=== PATIENT | female | born 1965 | race Caucasian/White ===

== ENCOUNTER 2019-10-16 18:57 | Emergency (ER) | payer MEDICAID, SELFPAY ==
[2019-10-16 18:58] VITALS: BP 159/76; PULSE 99; RESP 16; TEMP 36.5; O2SAT 98; BMI 41.4
[2019-10-16 19:18] VITALS: BP 159/76; PULSE 99; RESP 16; TEMP 36.5; O2SAT 98; BMI 41.4
--- NOTE | 2019-10-16 19:33 | HMH.EDUTC ---
[facility] [place]: Throat irritation Disposition: Home, Self-Care Condition on Discharge: Good Instructions: Sore Throat Additional Instructions: *Monitor Temp, Over the counter Motrin or Tylenol as directed/as needed Tylenol every 4 hours and Motrin every 6 hours (as long as your family doctor has told you that you can take it) for fever or pain. and straight to ER if unable to lower temp less than 101.0 after medication given *Warm salt water gargles may help to soothe the throat A saltwater gargle of 1/4 to 1/2 teaspoon of table salt to 4 to 8 ounces of warm water can help soothe a sore throat. Gargle the solution and then spit it out. *Throat Lozenges and spray may help with irritation in back of throat *Warm fluids like tea with honey and lemon may help with throat irritation *Humidifier/Vaporizer *Flonase 2 sprays in each nostril daily but be aware that it may take 2-3 days before you notice improvement DO NOT STICK ANYTHING IN THE BACK OF YOUR THROAT, may cause severe injury Your throat swab was sent for culture. Those results are typically sent to your primary care. Be sure to follow up in 2-3 days with your family doctor/primary care physician if no improvement so they can review those result and treat if necessary. If you don?t have a primary care doctor, I recommend you get one but in the mean time, you will have to return to a walk in clinic Follow up IMMEDIATELY for new or worsening symptoms or no Noticeable improvement over the next 48-72 hours. 911 for difficulty breathing or swallowing Follow up with your family doctor if symptoms continue or for referral to ENT if needed Straight to ER if any life threatening symptoms Referrals: Provider,Referral, [Primary Care Provider] - As needed Time of Disposition: 19:47 Medical Decision Making - Juan Inquiry Pt receiving controlled substance: No Juan was queried for this patient: No Vital Signs: 10/16/19 18:58 10/16/19 19:18 Temperature 97.7 F 97.7 F Temperature Source Oral Oral Pulse Rate [Left Radial] 99 H 99 H Respiratory Rate 16 16 Blood Pressure [Right Arm] 159/76 H 159/76 H Blood Pressure Mean [Right Arm] 103 103 Blood Pressure Source [Right Arm] Automatic Cuff Automatic Cuff Blood Pressure Position [Right Arm] Sitting Sitting 02 Sat by Pulse Oximetry 98 98 Oxygen Delivery Method Room Air Room Air - Lab Data Lab results reviewed: Yes: I reviewed the patient's lab results. Medical Decision Narrative: Discussed with patient not to be sticking anything in the back of her throat to scratch throat due to risk of injury to tissue. Patient informed that this action could make irritation in throat worse Patient verbalized understanding risks Patient denies fever, denies chills, denies feeling ill just having itching like feeling in the back of her throat [facility] [place] - General Stated complaint: Feels like something in throat,Couth,SOB,Abd Pain Time Seen by Provider: 10/16/19 19:05 Mode of Arrival: Family Vehicle Source of Information: Patient Limitations: No Limitations Description of Symptoms (Recalled from Triage Doc. by RN): pt stated she feels a scratch in her throat like something is there for 3 weeks. pt is able to eat and drink without trouble. pt denies any pain in her throat. pt is being treated for a sinus infection and post nasal drip. pt also stated she takes a qtip and scratches the back of her throat everyday because it makes it feel better HEENT Symptoms (Recalled from RN notes): Yes Resp Symptoms (Recalled from RN notes): Yes Skin Symptoms (Recalled from RN notes): No MS Symptoms (Recalled from RN notes): No Functional Status (Recalled from RN notes): N/A - History of Present Illness Provider Complaint: Patient state that she has a history of anxiety attacks States that for about 3 weeks she has been feeling like she has an itchy like feeling in the back of her throat States that when she eats or drinks something it
[2019-10-16 19:35] LABS: UTC Strep Screen (Rapid) Negative (Negative)
[2019-10-16 19:56] VITALS: BP 159/76; PULSE 99; RESP 16; TEMP 36.5; O2SAT 98
== END 2019-10-16 19:58 | disposition home or self-care (01) ==
PROVIDERS: Emergency Provider Nurse Practitioner
DX: J39.2 Other diseases of pharynx (principal); F17.210 Nicotine dependence, cigarettes, uncomplicated
CPT/HCPCS: 87880; 99201

== ENCOUNTER 2019-11-24 15:55 | Emergency (ER) | payer MEDICAID, SELFPAY ==
[2019-11-24 16:17] VITALS: BP 150/81; PULSE 94; RESP 20; TEMP 36.7; O2SAT 95; BMI 43.2
--- NOTE | 2019-11-24 16:29 | HMH.EDUTC ---
[facility] [place] Clinical Impression: Bronchitis Sinusitis Qualifiers: Sinusitis location: unspecified location Chronicity: acute Recurrence: non-recurrent Qualified Code(s): J01.90 - Acute sinusitis, unspecified Disposition: Home, Self-Care Condition on Discharge: Good Instructions: Sinusitis, DI for Acute Bronchitis, How to Quit Tobacco Products Additional Instructions: Drink plenty of fluids. Take tylenol or ibuprofen for pain or fever. Take the medications as directed. Follow up with your regular doctor. GO TO THE ER FOR ANY WORSENING SYMPTOMS Don't start the oral steroids until tomorrow, since you had the shot here today. Prescriptions: Fluconazole [Diflucan 150mg tab] 150 mg PO ONCE #1 tab [facility] Status[facility] methylPREDNISolone [Medrol] 4 mg PO DIRECTED 6 Days #21 tab.[email or web address] Transmission Status: [facility] Benzonatate [Tessalon Perle 100mg Cap] 100 mg PO TIDP PRN #30 cap PRN Reason: Cough Transmission Status: Received by [facility] Azithromycin [Z-Edmund 250mg Tab*] 250 mg PO UD DOSE PK #6 tab Transmission Status: Received by [facility] Referrals: Provider,Referral, MD [Primary Care Provider] - Time of Disposition: 16:40 Medical Decision Making - Medical Records Medical records reviewed: No: I reviewed the patient's medical records. - Juan Inquiry Pt receiving controlled substance: No Vital Signs: 11/24/19 16:17 11/24/19 16:41 Temperature 98.0 F 98.0 F Temperature Source Oral Pulse Rate 94 H Pulse Rate [Left Brachial] 94 H Respiratory Rate 20 20 Blood Pressure 150/81 H Blood Pressure [Left Arm] 150/81 H Blood Pressure Mean [Left Arm] 104 Blood Pressure Source [Left Arm] Automatic Cuff Blood Pressure Position [Left Arm] Sitting 02 Sat by Pulse Oximetry 95 Oxygen Delivery Method Room Air Orders (Tests/Meds): ED MEDICATIONS Discontinued Medications Generic Name Dose Route Start Last Admin Trade Name Freq PRN Reason Stop Dose Admin Ceftriaxone Sodium 1 gm 11/24/19 16:29 11/24/19 16:40 Rocephin 1gm Vial IM 11/24/19 16:30 1 gm ONCE ONE Administration Protocol Lidocaine HCl 0 ml 11/24/19 16:29 11/24/19 16:40 Lidocaine 1% 10ml Mdv IM 11/24/19 16:30 2.1 ml ONCE ONE Administration Methylprednisolone Sodium Succinate 125 mg 11/24/19 16:29 11/24/19 16:40 Solu-Medrol 125mg/2ml Vial IM 11/24/19 16:30 125 mg ONCE ONE Administration [facility] [place] - General Stated complaint: SOB Time Seen by Provider: 11/24/19 16:29 Mode of Arrival: Ambulatory Source of Information: Patient Limitations: No Limitations Description of Symptoms (Recalled from Triage Doc. by RN): PATIENT C/O SHORTNESS OF BREATH AND DRY COUGH (ONLY PRODUCTIVE IN AM) X 2-3 DAYS. SHE STATES SHE HAS HAD THESE SYMPTOMS IN THE PAST AND HER PCP USUALLY PRESCRIBES ORAL STEROIDS WHICH ARE EFFECTIVE HEENT Symptoms (Recalled from RN notes): No Resp Symptoms (Recalled from RN notes): Yes Skin Symptoms (Recalled from RN notes): No MS Symptoms (Recalled from RN notes): No Functional Status (Recalled from RN notes): WNL - History of Present Illness Provider Complaint: She c/o 3 days of worsening chest congestion and mild shortness of breath. She denies a history of copd, but she is a life long smoker. She denies any fever or chest pain. - Related Data Home Medications Medication Instructions Recorded Confirmed lisinopriL [Lisinopril 2.5mg Tab] 5 mg PO DAILY 11/19/18 11/19/18 Previous Rx's Medication Instructions Recorded Azithromycin [Z-Edmund 250mg Tab*] 250 mg PO UD DOSE PK #6 tab 11/24/19 Benzonatate [Tessalon Perle 100mg 100 mg PO TIDP PRN #30 cap 11/24/19 Cap] Fluconazole [Diflucan 150mg tab] 150 mg PO ONCE #1 tab 11/24/19 methylPREDNISolone [Medrol] 4 mg PO DIRECTED 6 Days #21 11/24/19 tab.[email or web address] Allergies Allergy/AdvReac Type Severity Reaction Status Da
[2019-11-24 16:41] VITALS: BP 150/81; PULSE 94; RESP 20; TEMP 36.7; O2SAT 95
== END 2019-11-24 16:58 | disposition home or self-care (01) ==
PROVIDERS: Emergency Provider Nurse Practitioner Family
DX: J20.9 Acute bronchitis, unspecified (principal); J01.90 Acute sinusitis, unspecified; F17.210 Nicotine dependence, cigarettes, uncomplicated; I10 Essential (primary) hypertension
CPT/HCPCS: 96372; 99201

== ENCOUNTER → 2019-11-29 11:14 | Outpatient (POV) | payer MEDICAID, SELFPAY | PROVIDERS: PCP Otolaryngology; Visit Provider Otolaryngology | DX: Z00.00 Encounter for general adult medical examination without abnormal findings (principal) ==

== ENCOUNTER 2019-12-03 18:59 | Emergency (ER) | payer MEDICAID, SELFPAY ==
[2019-12-03 19:16] VITALS: BP 158/99; PULSE 97; RESP 16; TEMP 36.6; O2SAT 98; BMI 43.2
[2019-12-03 19:31] LABS: Microscopic, Urine URINE MICROSCOPIC (MICROSCOPIC)
--- NOTE | 2019-12-03 19:37 | PC.NURSE ---
phone call received from kyle, patient's neighbor. explained to neighbor that due to [place] laws and regulations, information cannot be given out over the phone. pt is aware of phone call
[2019-12-03 20:17] LABS: Appearance,Urine CLEAR (Clear); Bilirubin,Urine Negative (Negative); Blood, Urine 1+ (Negative); Color,Urine YELLOW (Yellow); Glucose,Urine (UA) Negative (Negative); Ketones,Urine Negative (Negative); Leukocyte Esterase,Urine Negative (Negative); Nitrate,Urine Negative (Negative); Protein,Urine Negative (Negative); Urobilinogen,Urine 0.2 EU/dl (0.2)
[2019-12-03 21:21] LABS: Basophils % 0.3 % (0.1-2.0); Eosinophils # 0.4 K/mm3 (0.0-0.4); Eosinophils % 3.1 % (0.1-12.0); Hematocrit 47.3 % (37.0-47.0); Hemoglobin 15.7 g/dL (12.2-16.2); Lymphocytes # 3.5 K/mm3 (0.7-4.5); Lymphocytes % 25.6 % (10-50); Mean Corpuscular HGB Conc 33.1 g/dL (31.8-35.4); Mean Corpuscular Hemoglobin 29.7 pg (27.0-31.2); Mean Corpuscular Volume 89.6 fl (81-99); Monocytes # 0.7 K/mm3 (0.1-1.0); Monocytes % 5.1 % (1.7-9.3); Neutrophils # 9.1 K/mm3 (1.8-7.8); Neutrophils % 65.9 % (37.0-80.0); Platelet Count 293 K/mm3 (142-424); Red Blood Count 5.28 M/mm3 (4.20-5.40); Red Cell Distribution Width 14.3 % (11.5-17.5); White Blood Count 13.8 K/mm3 (4.8-10.8)
[2019-12-03 21:26] LABS: Lactic Acid 0.9 mmol/L (0.7-2.1)
[2019-12-03 21:29] LABS: Alanine Aminotransferase 12 U/L (12-78); Albumin Level 3.7 g/dl (3.5-5.0); Albumin/Globulin Ratio 1.2 (1.1-1.8); Alkaline Phosphatase 106 U/L (38-126); Anion Gap 12.2 mEq/L (5-15); Aspartate Amino Transferase 16 U/L (14-36); Bilirubin,Total 1.1 mg/dl (0.2-1.3); Blood Urea Nitrogen 14 mg/dl (7-17); Calcium 9.5 mg/dl (8.4-10.2); Carbon Dioxide 30 mmol/L (22.0-30.0); Chloride 99 mmol/L (98-107); Creatinine Clearance Estimated 82 mL/min (50-200); Estimated Glomerular Filt Rate 66 ml/min (>60); GFR (African American) 80 ML/MIN (>60); Globulin 3.2 g/dL (1.3-3.2); Glucose 105 mg/dl (74-100); Potassium 4.2 mmoL/L (3.5-5.1); Sodium 137 mmol/L (136-145); Total Protein,Serum 6.9 g/dl (6.3-8.2)
--- NOTE | 2019-12-03 21:41 | CT_ITS ---
PROCEDURE: CT ABDOMEN PELVIS WO CON CLINICAL INDICATION: ABD PAIN Epigastric pain and diarrhea COMPARISON: No exams were available for comparison TECHNIQUE: Axial images obtained with sagittal and coronal reformats. All CT scans at the facility use one or more dose reduction, viz: automated exposure control, ma/kV adjustment per patient size (including targeted exams where dose is matched to indication, i.e. head), or iterative reconstruction technique. FINDINGS: Lower thorax: The lower lung jones are clear and there is no pleural fluid. There is a calcified granuloma left lower lobe. ABDOMEN: Liver: No masses or biliary dilatation. Gallbladder: Post cholecystectomy Pancreas: No masses or peripancreatic fluid collections. Spleen: unremarkable Adrenals: unremarkable Kidneys/ureters: The kidneys are normal size and no calculi and there is no obstructive uropathy. ABDOMEN & PELVIS: Stomach bowel: The stomach and small bowel appear normal. There is minimal scattered stool and gas in the ascending and proximal transverse colon. There is diffuse diverticulosis of the descending and sigmoid colon without definite evidence of diverticulitis. Peritoneum: No abnormal fluid collections. No obvious inflammatory changes. No free air. Lymph nodes: No enlarged lymph nodes apparent. Vasculature: There is minimal arthrosclerotic calcification of the upper abdominal aorta, there is no aneurysm. Bones: There are moderate degenerate changes of the lower thoracic and lower lumbar spine. PELVIS: Reproductive: The uterus and adnexa are normal. Bladder: The urinary bladder is partially decompressed but otherwise normal. Appendix: [id number] diffuse diverticulosis descending and sigmoid colon without definite evidence of diverticulitis, no other significant abdominal or pelvic pathology identified IMPRESSION: Dictated by: Dr. Zac Alonso MD 12/04/2019 07:[address] Zac Alonso MD in [place] 12/04/2019 07:57
--- NOTE | 2019-12-03 21:41 | HMH.EDWEAK ---
ED Disposition Clinical Impression: Weakness, Tobacco use Obesity Qualifiers: Obesity type: due to excess calories Obesity classification: adult class 3 (BMI >= 40) Serious obesity comorbidity presence: with serious comorbidity Body mass index: BMI 40.0-44.9 Qualified Code(s): E66.01 - Morbid (severe) obesity due to excess calories; Z68.41 - Body mass index (BMI) 40.0-44.9, adult Disposition: Home, Self-Care Condition on Discharge: Good Instructions: DI for Muscle Weakness Additional Instructions: call pcp for follow up Referrals: Provider,Referral, MD [Primary Care Provider] - - Critical Care Critical Care Time: No Attestation: On 12/03/19, the high probability of a clinically significant, sudden or life threatening deterioration of the following system(s) required my full and direct attention, intervention and personal management. The time I documented below is in addition to time spent performing reported procedures but includes the following listed in this critical care notation. Medical Decision Making - Medical Records Medical records reviewed: Yes: I reviewed the patient's medical records. - Juan Inquiry Pt receiving controlled substance: No Vital Signs: 12/03/19 19:16 Temperature 98 F Temperature Source Oral Pulse Rate [Left Radial] 97 H Respiratory Rate 16 Blood Pressure [Right Arm] 158/99 H Blood Pressure Mean [Right Arm] 118 Blood Pressure Position [Right Arm] Sitting 02 Sat by Pulse Oximetry 98 Oxygen Delivery Method Room Air - Lab Data Lab results reviewed: Yes: I reviewed the patient's lab results. Lab Results 12/03/19 19:10: Urine Color Yellow, Urine Appearance Clear, Urine pH 6.0, Ur Specific [place] 1.010, Urine Protein Negative, Urine Glucose (UA) Negative, Urine Ketones Negative, Urine Blood 1+, Urine Nitrate Negative, Urine Bilirubin Negative, Urine Urobilinogen 0.2, Ur Leukocyte Esterase Negative, Urine RBC 3-5, Ur Squamous Epith Cells 10-20 12/03/19 20:55: WBC 13.8 H, RBC 5.28, Hgb 15.7, Hct 47.3 H, MCV 89.6, MCH 29.7, MCHC 33.1, RDW 14.3, Plt Count 293, MPV 8.0, Neut % (Auto) 65.9, Lymph % (Auto) 25.6, [place] % (Auto) 5.1, Eos % (Auto) 3.1, Baso % (Auto) 0.3, Neut # (Auto) 9.1 H, Lymph # (Auto) 3.5, [place] # (Auto) 0.7, Eos # (Auto) 0.4, Baso # (Auto) 0.0 12/03/19 20:55: Sodium 137, Potassium 4.2, Chloride 99, Carbon Dioxide 30, Anion Gap 12.2, BUN 14, Creatinine 0.90, Estimated Creat Clear 82, Estimated GFR 66, Est GFR ( Amer) 80, Glucose 105 H, Calcium 9.5, Total Bilirubin 1.1, AST 16, ALT 12, Alkaline Phosphatase 106, Total Protein 6.9, Albumin 3.7, Globulin 3.2, Albumin/Globulin Ratio 1.2 12/03/19 20:55: SARS-CoV-2 IgG Ab (Rapid) Negative, SARS-CoV-2 IgM Ab (Rapid) Negative 12/03/19 20:55: Lactate 0.9 12/03/19 20:55: ESR 20 12/03/19 20:55: Troponin I < 0.01, C-Reactive Protein 42.7 H, TSH 1.23, Thyroxine (T4) 12.4 H, T3 Uptake 31 Result diagrams: 12/03/19 20:55 12/03/19 20:55 Orders (Tests/Meds): ED MEDICATIONS Generic Name Dose Route Start Last Admin Trade Name Freq PRN Reason Stop Dose Admin Sodium Chloride 1,000 mls @ 999 mls/hr 12/03/19 20:45 12/03/19 20:39 Sod Chlor 0.9% 1000ml Bag IV 12/03/19 21:45 999 mls/hr .Q1H1M EDGAR Administration ORDERS Category Date Time Status CT abdomen pelvis wo con Stat Cat Scan 12/03/19 21:41 Taken Chest XR 2 view (NOT portable) [XR chest 2V] Stat Exams 12/03/19 21:42 Taken Troponin I Q3H Lab 12/04/19 00:45 Ordered Troponin I Q3H Lab 12/04/19 03:45 Ordered Blood Culture Stat Micro 12/03/19 20:55 Received - Radiology Data #1 Image(s): Chest Image Reviewed: Yes I reviewed the patient's radiology image Preliminary Findings: Normal/NAD - CT Data CT Scan: Abdomen, Pelvis Time Received: 23:[address] Reviewed: Yes: I have viewed the radiologist's interpretation Preliminary Findings: Normal/NAD Weakness HPI - General Chief complaint: Weakness Stated complaint: pain in L shoulder weakness
--- NOTE | 2019-12-03 21:42 | XR_ITS ---
PROCEDURE: XR CHEST 2V CLINICAL HISTORY: EPIGASTRIC Pain COMPARISON: No exams were available for comparison FINDINGS: The cardiomediastinal silhouette and pulmonary vascularity are within normal limits. The lungs are clear without infiltrates, suspicious nodules, or pleural effusions. There are mild multilevel degenerate changes of the lower thoracic spine. No acute bony abnormalities. IMPRESSION: No acute findings. Dictated by: Dr. Zac Alonso MD 12/04/2019 07:[address] Zac Alonso MD in [place] 12/04/2019 07:42
[2019-12-03 21:44] LABS: Coronavirus 19 IgG Antibody Negative (Negative); Coronavirus 19 IgM Antibody Negative (Negative)
[2019-12-03 22:02] LABS: C-Reactive Protein 42.7 mg/L (0-4)
[2019-12-03 22:10] LABS: Erythrocyte Sedimentation Rate 20 mm/hr (0-30)
[2019-12-03 22:17] LABS: T4 (Thyroxine) 12.4 ug/dl (5.53-11.0); Triiodothryronine (T3) Uptake 31 % (23.5-40.5)
[2019-12-03 22:29] LABS: Troponin I < 0.01 ng/ml (0.00-0.034)
[2019-12-03 22:30] LABS: Thyroid Stimulating Hormone 1.23 uIU/mL (0.465-4.68)
[2019-12-03 23:12] VITALS: BP 158/99; PULSE 97; RESP 16; TEMP 36.6; O2SAT 98
== END 2019-12-03 23:30 | disposition home or self-care (01) ==
PROVIDERS: Emergency Medicine; Emergency Provider Emergency Medicine
DX: R53.83 Other fatigue (principal); E66.01 Morbid (severe) obesity due to excess calories; Z68.41 Body mass index [BMI] 40.0-44.9, adult; F17.210 Nicotine dependence, cigarettes, uncomplicated; M25.512 Pain in left shoulder; I10 Essential (primary) hypertension; Z79.899 Other long term (current) drug therapy
CPT/HCPCS: 71046; 74176; 80053; 81001; 83605; 84436; 84443; 84479; 84484; 85025; 85651; 86140; 86328; 87040; 96365; 99283; 99284

== ENCOUNTER → 2020-03-01 11:10 | Outpatient (CLI) | payer MEDICAID, SELFPAY ==
[2020-03-01 13:11] LABS: Coronavirus 19 IgG Antibody Negative (Negative); Coronavirus 19 IgM Antibody Negative (Negative)
== END ==
PROVIDERS: Visit Provider Internal Medicine Gastroenterology
DX: Z01.818 Encounter for other preprocedural examination (principal); Z12.11 Encounter for screening for malignant neoplasm of colon
CPT/HCPCS: 36415; 86328

== ENCOUNTER 2020-03-02 07:09 | Day surgery (SDC) | payer MEDICAID, SELFPAY ==
[2020-02-28 12:30] VITALS: BMI 42.1
[2020-03-02] VITALS (7 sets, daily range): BP systolic 76–125; BP diastolic 43–78; PULSE 72–92; RESP 16–18; TEMP 36.1–36.6; O2SAT 92–98
[2020-03-02 07:46] LABS: Urine Pregnancy, HCG Qual. Negative (Negative)
--- NOTE | 2020-03-02 08:08 | HMH.PROC ---
[facility] Procedure Note Procedure Note:: Upper Endoscopy Procedure Report: Esophagogastroduodenoscopy with cold biopsies and TTS balloon dilation Endoscopost: Kings Jenkins II, MD Referring Physician: Yaritza Hernandez MD Date of Procedure: March 02, 2020 Equipment: Olympus GIF 180 standard upper endoscope Sedation: MAC sedation Indications: Mrs. Randhawa is a 54-year-old female with globus sensation and dysphagia. The patient has noted increased belching and marked early satiety. She reports no nausea. She always feels like there is something hung in her throat. She does report some bloating. When she bends over she developed some discomfort in the right upper quadrant but this improves when she stretches out. She does have regular bowel function now with Metamucil but formerly she would go to 3 times a day since her cholecystectomy and she formerly had postprandial urgency. She does have a long history of GERD/reflux for which she has taken omeprazole for several years. He was also placed on famotidine and presently reports no significant heartburn or reflux. The patient did have a CT scan of the abdomen and pelvis on December 03, 2019 and there was a normal-appearing stomach but there was scattered stool and gas in the ascending, hepatic flexure and proximal transverse colon. There was diffuse diverticulosis of the left colon. There were no other significant abnormalities. This is the patient's first upper endoscopy. Procedure: Prior to the procedure, a history and physical exam was performed, and patient's medications and allergies were reviewed. The risks, benefits and alternatives of the sedation and procedure were discussed with the patient. All questions were answered and informed consent was obtained. The patient was brought to the procedure room. Patient identification and proposed procedure were verified by the physician and the nurse. The patient was placed in a left lateral decubitus position and the scope was passed under direct vision. Throughout the procedure, the patient's blood pressure, pulse, and oxygen saturations were monitored continuously. The upper GI endoscopy was accomplished without difficulty. The patient tolerated the procedure well. Findings: The scope was passed directly into the upper esophagus and advanced to the third portion of the duodenum. The post bulbar duodenum and duodenal bulb were normal with normal mucosa and conniventes. The scope was withdrawn through a normal duodenal bulb and pylorus into the stomach. There was very mild linear reactive gastropathy with bile reflux. The remainder of the antrum, body and fundus of the stomach were grossly normal. Upon retroflexion there was no hiatal hernia. 2 biopsies were taken in the antrum and along the lesser curvature for histology to rule out gastritis and/or H pylori. The scope was then withdrawn into the esophagus. There was no evidence of reflux esophagitis or Can's. There was a serrated Z line. There were tertiary contractions and evidence of moderate esophageal dysmotility. The entire esophagus was dilated to 60 [place]/20 mm with a TTS hydrostatic balloon. There was some resistance at the cricopharyngeus. The remainder of the esophageal mucosa was normal. There was some thickening of the false vocal cords suggestive of laryngal pharyngeal reflux. Impression: 1. Nonerosive GERD with moderate esophageal dysmotility 2. Cricopharyngeal spasm 3. Bile reflux with linear reactive gastropathy Plan: I will follow-up the biopsies. 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 I would recommend dietary measures, fiber bowel regimen and promotility therapy. We will also discuss treatment for visceral sensitivity. I will proceed with diagnostic colonoscopy.
--- NOTE | 2020-03-02 08:16 | P.PN_ITS ---
[facility] Anesthesia Checklist - Structural Data Admitted From: Home Planned Operative Procedure/s: egd/colonoscopy Consent for Planned Operative Procedure(s) Verified: Yes - Airway Assessment C-Spine Mobility Assessed: Yes TMJ Mobility Assessed: Yes Dentition: Good Dentition - Neurological Assessment Level of Consciousness: Awake, Alert, Appropriate - Anesthesia Plan Anesthesia Risk discussed: Yes Anesthesia Plan: Verified ASA Class: III Anesthesia Type: MAC [facility] History I have reviewed the patient's past medical history: Yes Medical History: Reports:: Hypertension Denies:: Cancer, Diabetes Mellitus Type 1, Diabetes Mellitus Type 2, Internal Pacemaker, MRSA, Seizures *Have you ever received a pneumonia vaccine?: No *Have you received a flu vaccine this season?: No Anesthesia experience/problems:: none Other Surgeries: No: Pacemaker Amputation: No Fractures: No - *Social History Last grade of school completed: 11th or 12th Smoking Status: Current every day smoker Tobacco Type: cigarettes # Packs/Day (cigarettes): 1 Alcohol Intake: never Substance Use Type: denies use *Occupational Status:: other Housing: other Household Members: other *Travel in the last 8 weeks: None Family Hx:: Unable to obtain
--- NOTE | 2020-03-02 08:46 | HMH.PROC ---
[facility] Procedure Note Procedure Note:: Colonoscopy Procedure Report: Colonoscopy with cold snare polypectomy Endoscopist: Kings Jenkins II, MD Referring physician: Yaritza Hernandez MD Date of Procedure: March 02, 2020 Equipment: Olympus 180 variable stiffness pediatric colonoscope Sedation: MAC sedation Indication: Mrs. Randhawa is a 54-year-old female with right upper quadrant abdominal discomfort especially when she bends over. She also has had some bowel irregularity with 2 or 3 bowel movements daily postprandially since her cholecystectomy. This did improve with Metamucil and now she is regular. She does get relief of the right upper quadrant pain with stretching out. She has had bloating. She reports no rectal bleeding, weight loss or family history of colon cancer. She does have some dyspepsia and GERD. This is her first colonoscopy for diagnostic purposes. Procedure: Prior to the procedure, a history and physical exam was performed, and patient's medications and allergies were reviewed. The risks, benefits and alternatives of the sedation and procedure were discussed with the patient. All questions were answered and informed consent was obtained. The patient was brought to the procedure room. Patient identification and proposed procedure were verified by the physician and the nurse. The patient was placed in a left lateral decubitus position and the scope was passed under direct vision. Throughout the procedure, the patient's blood pressure, pulse, and oxygen saturations were monitored continuously. The colonoscopy was accomplished without difficulty. The patient tolerated the procedure well. Findings: On digital rectal examination there was normal rectal tone. There were no external hemorrhoids. The colonoscope was introduced through the anal canal to the rectum and advanced to the cecum. The ileocecal valve and appendiceal orifice were identified. The scope was advanced a short distance into the ileum which appeared grossly normal. The scope was then withdrawn into the colon. The cecum was normal. There appeared to be some angulation at the hepatic flexure suggestive of hepatic flexure syndrome. There were 6 polyps (ascending x2 (3 and 5 mm), transverse x1 (6 mm), descending x1 (4 mm) and sigmoid x2 (2 and 5 mm)) which were all removed via cold snare polypectomy. There were scattered diverticuli throughout the descending and sigmoid colon (LEFT colon). The rectum itself was normal. Upon retroflexion within the rectum there were grade 2 internal hemorrhoids. The preparation was excellent throughout with Dalton Preparation Score of 9. The cecal time was 12 minutes. Impression: 1. 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 Extensive left-sided diverticulosis 4. Grade 2 internal hemorrhoids Plan: I will follow up the polyp pathology and recommend repeat colonoscopy again in 3 years based upon the polyp histology. 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 We will discuss dietary measures and fiber bowel regimen. I would also consider treatment for visceral sensitivity. I would encourage a fiber bowel regimen on a long-term daily maintenance basis.
== END 2020-03-02 09:50 | disposition home or self-care (01) ==
LOC: OUTP 07:15
PROVIDERS: Visit Provider Internal Medicine Gastroenterology
PROC: 0DJ08ZZ Inspection of Upper Intestinal Tract, Via Natural or Artificial Opening Endoscopic (ICD-10-PCS; CPT 43235; principal; 2020-03-02 08:00)
DX: K21.9 Gastro-esophageal reflux disease without esophagitis (principal); K22.4 Dyskinesia of esophagus; J39.2 Other diseases of pharynx; K31.9 Disease of stomach and duodenum, unspecified; K63.5 Polyp of colon; K57.30 Diverticulosis of large intestine without perforation or abscess without bleeding; K64.1 Second degree hemorrhoids; I10 Essential (primary) hypertension; Z72.0 Tobacco use; Z79.899 Other long term (current) drug therapy
CPT/HCPCS: 43239; 43249; 45385; 81025; C1726

== ENCOUNTER → 2020-05-01 12:33 | Outpatient (CLI) | payer MEDICAID, SELFPAY ==
--- NOTE | 2020-05-01 12:39 | MM_ITS ---
PROCEDURE: MM DIG SCREENING MAMM BI W/CAD Digital Breast Tomosynthesis Included CLINICAL INDICATION: SCREENING There is no personal or family history of breast cancer. COMPARISON: No exams were available for comparison TECHNIQUE: Standard CC and MLO images and 3D Tomosynthesis was obtained. R2 CAD reviewed. FINDINGS: The breasts are composed primarily of fat with scattered fibroglandular densities throughout each breast. There are couple of benign-appearing calcifications in each breast. There is a there is no suspicious lesion in either breast and no suspicious microcalcifications. There is a tiny benign-appearing nodular density just deep to the nipple of the right breast. However since there are no previous studies for comparison recommend the patient return spot compression views right breast and ultrasound if this proves to be a true lesion. IMPRESSION: Fibrofatty parenchyma with asymmetric density right breast BI-RAD Category: 0 Need Additional Imaging Evaluation FOLLOW-UP: IMM Immediate Follow-up Recommended (A letter has been sent to the patient regarding results of the study.) Dictated by: Dr. Zac Alonso MD 05/06/2020 07:53 Dr. Zac Alonso MD in [place] 05/06/2020 07:53
== END ==
PROVIDERS: PCP Family Medicine; Visit Provider Family Medicine
DX: Z12.31 Encounter for screening mammogram for malignant neoplasm of breast (principal)
CPT/HCPCS: 77063; 77067

== ENCOUNTER 2020-05-04 16:18 | Emergency (ER) | payer MEDICAID, SELFPAY ==
--- NOTE | 2020-05-04 17:01 | HMH.EDUTC ---
[facility] [place] Disposition Clinical Impression: Exposure to COVID-19 virus Disposition: Home, Self-Care Condition on Discharge: Good Instructions: Preventing the Spread of Coronavirus Discharge Instructions Additional Instructions: Drink plenty of fluids. Take tylenol for pain or fever. Follow up with your regular doctor. GO TO THE ER FOR ANY WORSENING SYMPTOMS Referrals: Yaritza Hernandez MD [Primary Care Provider] - Time of Disposition: 17:02 Medical Decision Making - Medical Records Medical records reviewed: No: I reviewed the patient's medical records. - Juan Inquiry Pt receiving controlled substance: No Vital Signs: 05/04/20 17:02 05/04/20 17:08 Temperature 98.7 F 98.7 F Temperature Source Oral Pulse Rate 89 Pulse Rate [Right Brachial] 89 Respiratory Rate 18 18 Blood Pressure 145/90 H Blood Pressure [Right Arm] 145/90 H Blood Pressure Mean [Right Arm] 108 Blood Pressure Source [Right Arm] Automatic Cuff Blood Pressure Position [Right Arm] Sitting 02 Sat by Pulse Oximetry 98 Oxygen Delivery Method Room Air Orders (Tests/Meds): ORDERS Category Date Time Status Covid-19 Nasal PCR ([facility]) Routine Lab 05/04/20 16:50 Received [facility] [place] HPI - General Stated complaint: wants COVID test Time Seen by Provider: 05/04/20 17:01 - History of Present Illness Provider Complaint: He is here after being exposed to covid. He denies any symptoms. - Related Data Home Medications Medication Instructions Recorded Confirmed lisinopriL [Lisinopril 2.5mg Tab] 40 mg PO DAILY 11/19/18 03/02/20 ALPRAZolam [Xanax Xr 1mg Tab] 1 mg PO TID 02/28/20 03/02/20 Albuterol Sulfate [Albuterol 18 gm IH DAILY 02/28/20 03/02/20 Sulfate Hfa] Amlodipine Besylate [Amlodipine 5 mg PO DAILY 02/28/20 03/02/20 5mg tab] Famotidine [Acid Paint Tester] 20 mg PO BID 02/28/20 03/02/20 Omeprazole [Omeprazole 40mg 40 mg PO DAILY 02/28/20 03/02/20 Capsule] polyethylene glycoL 3350 [Miralax 17 gm PO DAILY 02/28/20 03/02/20 Powder] Psyllium Husk [Metamucil] 0.4 gm PO DAILY 03/02/20 03/02/20 Allergies Allergy/AdvReac Type Severity Reaction Status Date / Time No Known Allergies Allergy Verified 03/02/20 07:38 [facility] History - Hepatitis A Screen Attestation statement:: This patient has been screened for Hepatitis A risk factors. I have reviewed the patient's past medical history: Yes Medical History: Reports:: Hypertension Denies:: Cancer, Diabetes Mellitus Type 1, Diabetes Mellitus Type 2, Internal Pacemaker, MRSA, Seizures Other Surgeries: No: Pacemaker Amputation: No Fractures: No - Social History Smoking Status: Current every day smoker Tobacco Type: cigarettes # Packs/Day (cigarettes): 1 Alcohol Intake: never Substance Use Type: denies use Occupational Status: other Housing: other Household Members: other Family Hx:: Unable to obtain ROS Obtained: Yes All systems reviewed & no additional complaints - Constitutional Constitutional: Reports system reviewed and no additional complaints, except as docu - Eyes Eyes: Reports system reviewed and no additional complaints, except as docu - ENT Ears, Nose, Mouth, and Throat: Reports system reviewed and no additional complaints, except as docu - Cardiovascular Cardiovascular: Reports system reviewed and no additional complaints, except as docu - Respiratory Respiratory: Yes system reviewed and no additional complaints, except as docu - Gastrointestinal Gastrointestingal: Reports: system reviewed and no additional complaints, except as docu Physical Exam - General General appearance: alert, in no apparent distress - Head Head exam: atraumatic, normocephalic, normal inspection - Eye Eye exam: Present: normal appearance, PERRL, EOMI - ENT ENT exam: Present: normal exam, normal oropharynx, mucous membranes moist, TM's normal bilaterally, normal external ear exam - Neck Neck exam: Present: normal inspection, full ROM,
[2020-05-04 17:02] VITALS: BP 145/90; PULSE 89; RESP 18; TEMP 37.1; O2SAT 98; BMI 36.8
[2020-05-04 17:08] VITALS: BP 145/90; PULSE 89; RESP 18; TEMP 37.1; O2SAT 98
== END 2020-05-04 17:10 | disposition home or self-care (01) ==
PROVIDERS: Emergency Provider Nurse Practitioner Family; PCP Family Medicine
DX: Z20.828 Contact with and (suspected) exposure to other viral communicable diseases (principal); F17.210 Nicotine dependence, cigarettes, uncomplicated
CPT/HCPCS: 99201; U0003

== ENCOUNTER → 2020-06-11 12:55 | Outpatient (POV) | payer MEDICAID, SELFPAY | PROVIDERS: Visit Provider Nurse Practitioner Family | DX: Z00.00 Encounter for general adult medical examination without abnormal findings (principal) ==

== ENCOUNTER → 2020-06-12 14:21 | Outpatient (CLI) | payer MEDICAID, SELFPAY ==
--- NOTE | 2020-06-12 14:23 | MM_ITS ---
PROCEDURE: MM DIG MAMM DX UNILAT RT CAD Digital Breast Tomosynthesis Included CLINICAL INDICATION: ABN MAMM RT BREAST Follow-up right breast asymmetric density COMPARISON: MG MM DIG SCREENING MAMM BI W/CAD from 05/01/2020 US US BREAST RT COMPLETE from 06/12/2020 TECHNIQUE: Spot-compression views along with right breast ultrasound FINDINGS: The area of asymmetry in the retroareolar region as seen on the MLO view does appear to compress out as fibroglandular tissue. Right breast ultrasound: A 4 mm hypoechoic nodules present in the 10 o'clock region in the the may be due to a complicated cyst. There is ductal dilatation in the retroareolar region. No suspicious nodule identified IMPRESSION: BI-RAD Category: 3 Probably Benign Finding Short Term Follow-up FOLLOW-UP: 6M 6Month Follow-up (A letter has been sent to the patient regarding results of the study.) Dictated by: Luke Rajput MD 06/26/2020 12:19 Luke Rajput MD in [place] 06/26/2020 12:19
== END ==
PROVIDERS: PCP Family Medicine; Visit Provider Family Medicine
DX: R92.8 Other abnormal and inconclusive findings on diagnostic imaging of breast (principal)
CPT/HCPCS: 76641; 77061; 77065; G0279

== ENCOUNTER → 2020-12-03 12:40 | Outpatient (POV) | payer MEDICAID, SELFPAY | PROVIDERS: Visit Provider Nurse Practitioner Family | DX: Z00.00 Encounter for general adult medical examination without abnormal findings (principal) ==

== ENCOUNTER 2021-04-05 14:22 | Emergency (ER) | payer MEDICAID, SELFPAY ==
[2021-04-05 14:25] VITALS: BP 148/65; PULSE 90; RESP 20; TEMP 36.6; O2SAT 98; BMI 62.3
--- NOTE | 2021-04-05 14:46 | HMH.EDUTC ---
[facility] [place] Disposition Clinical Impression: Viral syndrome Abdominal pain Qualifiers: Abdominal location: generalized Qualified Code(s): R10.84 - Generalized abdominal pain Disposition: Home, Self-Care Condition on Discharge: Good Instructions: DI for Viral Syndrome Additional Instructions: Drink plenty of fluids. Take tylenol or ibuprofen for pain or fever. Take the medications as directed. Follow up with your regular doctor. GO TO THE ER FOR ANY WORSENING SYMPTOMS Quarantine until you know the results of your covid-19 test. If it is positive, the health department should call you and give you further instructions about your length of Quarantine and other things. Notify your school or workplace of your results and follow their instructions regarding return to work/school. Prescriptions: Ondansetron [Zofran 4mg ODT] 4 mg PO DAILYP PRN #12 tab PRN Reason: Nausea Transmission Status: Received by [id number] Referrals: Yaritza Hernandez MD [Primary Care Provider] - Medical Decision Making - Medical Records Medical records reviewed: No: I reviewed the patient's medical records. - Juan Inquiry Pt receiving controlled substance: No Vital Signs: 04/05/21 14:25 Temperature 97.8 F Temperature Source Oral Pulse Rate [Left Brachial] 90 Respiratory Rate 20 Blood Pressure [Left Arm] 148/65 H Blood Pressure Mean [Left Arm] 92 Blood Pressure Source [Left Arm] Automatic Cuff Blood Pressure Position [Left Arm] Sitting 02 Sat by Pulse Oximetry 98 Oxygen Delivery Method Room Air - Lab Data Lab results reviewed: Yes: I reviewed the patient's lab results. Lab Results 04/05/21 14:54: Influenza Type A Ag Negative, Influenza Type B Ag Negative 04/05/21 15:01: Strep Scn [facility] Negative 04/05/21 15:35: WBC 10.8, RBC 5.15, Hgb 15.3, Hct 46.5, MCV 90.3, MCH 29.8, MCHC 33.0, RDW 14.0, Plt Count 340, MPV 8.1, Neut % (Auto) 66.6, Lymph % (Auto) 22.6, [place] % (Auto) 6.5, Eos % (Auto) 3.3, Baso % (Auto) 1.0, Neut # (Auto) 7.2, Lymph # (Auto) 2.4, [place] # (Auto) 0.7, Eos # (Auto) 0.4, Baso # (Auto) 0.1 04/05/21 15:35: Sodium 140, Potassium 3.8, Chloride 105, Carbon Dioxide 29, Anion Gap 9.8, BUN 8, Creatinine 0.80, Estimated Creat Clear 61, Estimated GFR 75, Est GFR ( Amer) 91, Glucose 113 H, Calcium 8.8, Total Bilirubin 0.6, AST 27, ALT 18, Alkaline Phosphatase 101, Total Protein 6.8, Albumin 3.6, Globulin 3.2, Albumin/Globulin Ratio 1.1, Amylase 42, Lipase 16 L Result diagrams: 04/05/21 15:35 04/05/21 15:35 Orders (Tests/Meds): ORDERS Category Date Time Status Chest XR 2 view (NOT portable) [XR chest 2V] Stat Exams 04/05/21 15:28 Taken Covid-19 Nasal PCR ([facility]) Routine Lab 04/05/21 15:02 Received Strep Screen Confirmation Stat Micro 04/05/21 15:01 Received 12-lead EKG Request [ECG Request by /Kvng] Stat Y 04/05/21 14:58 Ordered - Radiology Data #1 Image(s): Chest Image Reviewed: Yes I reviewed the patient's radiology image [facility] [place] HPI - General Stated complaint: Don't feel right Time Seen by Provider: 04/05/21 14:56 - History of Present Illness Provider Complaint: She states that for the past 3 days she has been feeling bad. She has trouble describing exactly how she feels, so she states I just don't feel right . She denies any chest pain or palpatations or shortness of breath. She has been having some intermitent sharp right upper quadrant abdominal pain that only lasts for a few seconds when it occurs. She describes it as sharp and shooting . She has had a runny nose, bilateral ear fullness, and some mild sinus pressure, but she states that is normal for her with her allergies this time of the year. She denies a cough or chest congestion. - Related Data Home Medications Medication Instructions Recorded Confirmed lisinopriL [Lisinopril 2.5mg Tab] 40 mg PO DAILY 11/19/18 04/05/21 ALPRAZolam [Xanax Xr 1mg Tab] 1 mg PO TID 02/28/20 03/02/20 Al
--- NOTE | 2021-04-05 14:48 | ECG_ITS ---
APPROVED REPORT Exam: Resting ECG HR:85 bpm ECG Measurements Heart Rate 85 AXES NM 120 P -19 QRSd 74 QRS 0 QT 368 T 24 QTc 437 Conclusion Normal sinus rhythm Normal ECG Electronically signed by : Vikash Grady MD 04/06/2021 09:46:53
[2021-04-05 14:55] LABS: UTC Influenza A Antigen Negative (Negative)
[2021-04-05 14:56] LABS: UTC Influenza B Antigen Negative (Negative)
[2021-04-05 15:14] LABS: UTC Strep Screen (Rapid) Negative (Negative)
--- NOTE | 2021-04-05 15:28 | XR_ITS ---
PROCEDURE INFORMATION: Exam: XR Chest Exam date and time: 04/05/2021 3:28 PM Age: 55 years old Clinical indication: Patient HX: Cough, congestion, smoker TECHNIQUE: Imaging protocol: XR of the chest. Views: 2 views. COMPARISON: CR XR CHEST 2V 12/03/2019 10:02 PM FINDINGS: Lungs: Unremarkable. No consolidation. Pleural spaces: Unremarkable. No pleural effusion. No pneumothorax. Heart/Mediastinum: Unremarkable. No cardiomegaly. Bones/joints: Unremarkable. IMPRESSION: No acute findings.
[2021-04-05 15:53] LABS: Chloride 105 mmol/L (98-107); Potassium 3.8 mmoL/L (3.5-5.1); Sodium 140 mmol/L (136-145)
[2021-04-05 15:55] LABS: Amylase 42 U/L (30-110)
[2021-04-05 15:56] LABS: Alanine Aminotransferase 18 U/L (12-78); Albumin Level 3.6 g/dl (3.5-5.0); Albumin/Globulin Ratio 1.1 (1.1-1.8); Alkaline Phosphatase 101 U/L (38-126); Anion Gap 9.8 mEq/L (5-15); Aspartate Amino Transferase 27 U/L (14-36); Bilirubin,Total 0.6 mg/dl (0.2-1.3); Blood Urea Nitrogen 8 mg/dl (7-17); Calcium 8.8 mg/dl (8.4-10.2); Carbon Dioxide 29 mmol/L (22.0-30.0); Creatinine Clearance Estimated 61 mL/min (50-200); Estimated Glomerular Filt Rate 75 ml/min (>60); GFR (African American) 91 ML/MIN (>60); Globulin 3.2 g/dL (1.3-3.2); Glucose 113 mg/dl (74-100); Lipase 16 U/L (23-300); Total Protein,Serum 6.8 g/dl (6.3-8.2)
[2021-04-05 16:02] LABS: Basophils # 0.1 K/mm3 (0-0.2); Eosinophils # 0.4 K/mm3 (0.0-0.4); Eosinophils % 3.3 % (0.1-12.0); Hematocrit 46.5 % (37.0-47.0); Hemoglobin 15.3 g/dL (12.2-16.2); Lymphocytes # 2.4 K/mm3 (0.7-4.5); Lymphocytes % 22.6 % (10-50); Mean Corpuscular Hemoglobin 29.8 pg (27.0-31.2); Mean Corpuscular Volume 90.3 fl (81-99); Mean Platelet Volume 8.1 fl (7.4-10.4); Monocytes # 0.7 K/mm3 (0.1-1.0); Monocytes % 6.5 % (1.7-9.3); Neutrophils # 7.2 K/mm3 (1.8-7.8); Neutrophils % 66.6 % (37.0-80.0); Platelet Count 340 K/mm3 (142-424); Red Blood Count 5.15 M/mm3 (4.20-5.40); White Blood Count 10.8 K/mm3 (4.8-10.8)
[2021-04-05 16:40] VITALS: BP 148/65; PULSE 90; RESP 20; TEMP 36.6; O2SAT 98
[2021-04-05 17:59] LABS: Apearance,Urine Clear (Clear); Blood, Urine Trace (Negative); Color,Urine Yellow (Yellow); Glucose,Urine (UA) Negative (Negative); Ketones,Urine Negative (Negative); PH,Urine 5.5 (5.0-8.5); Protein,Urine Negative (Negative); Specific Gravity, Urine 1.025 (1.005-1.030)
[2021-04-05 18:00] LABS: Bilirubin,Urine Negative (Negative); UTC Leukocyte Esterase,Urine Negative (Negative); UTC Nitrate,Urine Negative (Negative); Urobilinogen,Urine 0.2 EU/dl (0.2)
== END 2021-04-05 16:42 | disposition home or self-care (01) ==
PROVIDERS: Emergency Provider Nurse Practitioner Family; PCP Family Medicine
DX: R10.84 Generalized abdominal pain (principal); Z20.822 Contact with and (suspected) exposure to COVID-19; F17.210 Nicotine dependence, cigarettes, uncomplicated
CPT/HCPCS: 71046; 80053; 81003; 82150; 83690; 85025; 87804; 87880; 93005; 99203; C9803; G0463; U0003; U0005

== ENCOUNTER → 2021-07-17 13:54 | Outpatient (CLI) | payer MEDICAID, SELFPAY | PROVIDERS: Visit Provider Nurse Practitioner | DX: Z20.822 Contact with and (suspected) exposure to COVID-19 (principal) | CPT/HCPCS: C9803; U0003; U0005 ==

== ENCOUNTER 2022-04-04 15:03 | Emergency (ER) | payer MEDICAID, SELFPAY ==
[2022-04-04 15:26] VITALS: BP 134/81; PULSE 86; RESP 16; TEMP 36.5; O2SAT 96; BMI 32.1
--- NOTE | 2022-04-04 15:40 | EXP.UTC ---
Discharge Plan Disposition Patient Disposition: Home, Self-Care Condition: Good Prescriptions Prescriptions: New nystatin 100,000 unit/mL suspension 5 ml PO QID 10 Days Qty: 200 0RF Rx Instructions: swish around in your mouth then spit it out. No Action lisinopril 2.5 MG tablet 40 mg PO DAILY amlodipine 5 MG tablet 5 mg PO DAILY omeprazole 40 MG capsule,delayed release(DR/EC) 40 mg PO DAILY famotidine 20 MG tablet 20 mg PO BID polyethylene glycol 3350 119 GM powder 17 gm PO DAILY albuterol sulfate 8.5 GM HFA aerosol inhaler 18 gm IH DAILY alprazolam 1 MG tablet extended release 24 hr 1 mg PO TID psyllium husk 0.4 GM capsule 0.4 gm PO DAILY ondansetron 4 MG tablet,disintegrating 4 mg PO DAILYP PRN (Reason: Nausea) Qty: 12 0RF Referrals Follow up/Referrals: Yaritza Hernandez MD [Primary Care Provider] - See instructions Activity Restrictions/Add. Instructions Additional Instructions/Restrictions: Drink plenty of fluids. Take tylenol or ibuprofen for pain or fever. Take the medications as directed. Follow up with your regular doctor. GO TO THE ER FOR ANY WORSENING SYMPTOMS Clinical Impressions Clinical Impression: Oral thrush Instructions Patient Instructions: DI for Thrush, Nystatin Discharge ED Provider: Haresh Panda [facility] General Stated complaint: Tongue white, dry mouth Mode of Arrival: Ambulatory Source of Information: Patient Limitations: No Limitations Time Seen by Provider: 04/04/22 15:40 Description of Symptoms (Recalled from Triage Doc. by RN): pt comes in with c/o white patches on tongue and in mouth. pt also states she has a dry mouth at night. pt noticed patches on mouth today but the past 3 nights has had the dry mouth HEENT Symptoms (Recalled from RN notes): Yes Resp Symptoms (Recalled from RN notes): No Skin Symptoms (Recalled from RN notes): No MS Symptoms (Recalled from RN notes): No Functional Status (Recalled from RN notes): n/a History of Present Illness Provider Complaint: She states that for the past 3 days she has had irritation of her mouth and tongue. She thinks that she has thrush. She recently started taking a steroid nasal spray and Breo inhaler that was prescribed by her pcp. She denies other complaints. Related Data Home Medications Medication Instructions Recorded Confirmed lisinopril 2.5 mg tablet 40 mg PO DAILY Hypertension 11/19/18 04/05/21 albuterol sulfate 90 mcg/actuation 18 gm IH DAILY SOA 02/28/20 03/02/20 aerosol inhaler alprazolam 1 mg tablet,extended 1 mg PO TID Anxiety 02/28/20 03/02/20 release 24 hr amlodipine 5 mg tablet 5 mg PO DAILY Hypertension 02/28/20 04/05/21 famotidine 20 mg tablet 20 mg PO BID acid reflux 02/28/20 03/02/20 omeprazole 40 mg capsule,delayed 40 mg PO DAILY GERD 02/28/20 04/05/21 release polyethylene glycol 3350 17 17 gm PO DAILY constipation 02/28/20 03/02/20 gram/dose oral powder psyllium husk 0.4 gram capsule 0.4 gm PO DAILY bowels 03/02/20 03/02/20 Previous Rx's Medication Instructions Recorded ondansetron 4 mg disintegrating 4 mg PO DAILYP PRN Nausea #12 tabs 04/05/21 tablet nystatin 100,000 unit/mL oral 5 ml PO QID 10 days #200 mL 04/04/22 suspension Allergies Allergy/AdvReac Type Severity Reaction Status Date / Time No Known Allergies Allergy Verified 03/02/20 07:38 Worker's Comp Is this a Worker's Comp case?: No PFSH PFS Social History Smoking Status: Current every day smoker tobacco type: cigarettes packs per day: 1 alcohol intake: never substance use type: denies use current occupational status: other Travel in the last 8 weeks: None household members: other housing: other caffeine: Yes ROS Obtained: Yes All systems reviewed & no additional complaints except as documented Constitutional Constitutional: Reports chills and R
[2022-04-04 16:07] LABS: UTC Strep Screen (Rapid) Negative (Negative)
[2022-04-04 16:14] VITALS: BP 134/81; PULSE 86; RESP 16; TEMP 36.5
== END 2022-04-04 16:14 | disposition home or self-care (01) ==
PROVIDERS: Emergency Provider Nurse Practitioner Family; PCP Family Medicine
DX: B37.0 Candidal stomatitis (principal)
CPT/HCPCS: 87880; 99212; G0463

== ENCOUNTER → 2022-10-30 16:38 | Outpatient (CLI) | payer MEDICAID, SELFPAY | PROVIDERS: PCP Family Medicine; Visit Provider Specialist | DX: G47.33 Obstructive sleep apnea (adult) (pediatric) (principal) | CPT/HCPCS: G0399 ==